=== PATIENT | male | born 1990 | race Caucasian/White ===

== ENCOUNTER 2019-07-25 08:33 | Emergency (ER) | payer MEDICAID ==
[~2019-07-25] VITALS: Ht 177.8 cm; Wt 73.0 kg
[2019-07-25 08:36] VITALS: BP 121/81
[2019-07-25] MEDS ORDERED: TETanus/Pertussis (Acell)/Diphther VAC/PF (Tdap-Adult) 0.5ml syringe IM ONE (09:15)
[2019-07-25] MEDS ORDERED: ibuprofen tablet 400 MG TABLET PO ONE (09:15)
[2019-07-25] MEDS ORDERED: LIDOcaine/epinephrine TOPICAL 5 ML BTL TOP ONE (09:15)
[2019-07-25] MEDS ORDERED: bacitracin 15gm ointment TP ONE (09:15)
[2019-07-25] MEDS ORDERED: acetaminophen 325mg tablet PO ONE (09:15)
[2019-07-25] MEDS ORDERED: LIDOcaine 2% 5ml jelly TOP ONE (09:35)
--- NOTE | 2019-07-25 10:36 | NUR ---
meds given by pao lópez
== END 2019-07-25 10:38 | disposition home or self-care (01) ==
LOC: ER 08:34
DX: S62.001A Unspecified fracture of navicular [scaphoid] bone of right wrist, initial encounter for closed fracture (principal); V00.131A Fall from skateboard, initial encounter; Y93.51 Activity, roller skating (inline) and skateboarding; Y92.89 Other specified places as the place of occurrence of the external cause; Y99.9 Unspecified external cause status
CPT/HCPCS: 29125; 73090; 73110; 99284

== ENCOUNTER 2020-05-11 02:34 | Emergency (ER) | payer MEDICAID, OTHER ==
[~2020-05-11] VITALS: Ht 177.8 cm; Wt 77.3 kg
[2020-05-11] MEDS ORDERED: ipratropium/albuterol 3ml nebule NEB ONE (02:45)
[2020-05-11] MEDS ORDERED: azithromycin 250mg tablet PO ONE (03:15)
[2020-05-11] MEDS ORDERED: predniSONE 20 mg tablet PO ONE (03:35)
[2020-05-11] MEDS ORDERED: PRED20TA PO (03:37)
[2020-05-11] MEDS ORDERED: AZIT-63 PO (03:37)
[2020-05-11] MEDS ORDERED: ALBU8.5H8 INH (03:38)
[2020-05-11 03:45] VITALS: BP 118/75
== END 2020-05-11 03:47 | disposition home or self-care (01) ==
LOC: ER 02:34
DX: J18.9 Pneumonia, unspecified organism (principal); J45.909 Unspecified asthma, uncomplicated; F17.200 Nicotine dependence, unspecified, uncomplicated; Z79.2 Long term (current) use of antibiotics; Z79.899 Other long term (current) drug therapy
CPT/HCPCS: 71045; 93005; 94640; 99283; J7512; 94760

== ENCOUNTER 2020-10-29 11:56 | Emergency (ER) | payer MEDICAID, OTHER ==
[~2020-10-29] VITALS: Ht 177.8 cm; Wt 60.4 kg
[~2020-10-29 11:56] MED LIST: ALBU8.5H8 INH
[2020-10-29] MEDS ORDERED: predniSONE 20 mg tablet PO ONE (12:20)
[2020-10-29 12:50] LABS: BASOPHILS # (AUTO) 0.1 X10'3 (0-0.2); BASOPHILS % (AUTO) 0.6 % (0-1); EOSINOPHILS # (AUTO) 0.7 X10'3 (0-0.9); HEMATOCRIT 47.1 % (42.0-52.0); HEMOGLOBIN 15.7 g/dl (14.0-17.9); LYMPHOCYTES # (AUTO) 1.9 X10'3 (1.1-4.8); LYMPHOCYTES % (AUTO) 15.1 % (21-51); MEAN CORPUSCULAR HEMOGLOBIN 30.1 PG (27.0-31.0); MEAN CORPUSCULAR HGB CONC 33.3 g/dL (33.0-36.5); MEAN CORPUSCULAR VOLUME 90.5 FL (78-98); MEAN PLATELET VOLUME 7.3 FL (7.4-10.4); MONOCYTES # (AUTO) 1.2 X10'3 (0-0.9); MONOCYTES % (AUTO) 9.9 % (2-12); NEUTROPHILS # (AUTO) 8.5 X10'3 (1.8-7.7); NEUTROPHILS % (AUTO) 68.4 % (42-75); PLATELET COUNT 426 X10'3 (140-440); RED CELL DISTRIBUTION WIDTH 13.6 % (11.5-14.5); WHITE BLOOD COUNT 12.4 X10'3 (4.5-11.0)
[2020-10-29 13:00] LABS: ALANINE AMINOTRANSFERASE 24 U/L (12-78); ALBUMIN 3.8 G/DL (3.4-5.0); ALKALINE PHOSPHATASE 119 IU/L (46-116); ANION GAP 10 (8-16); ASPARTATE AMINO TRANSFERASE 25 U/L (10-37); BILIRUBIN,TOTAL 0.6 MG/DL (0.1-1.0); BLOOD UREA NITROGEN 15 MG/DL (7-18); BUN/CREATININE RATIO 18.5 (5.4-32.0); CHLORIDE 102 MMOL/L (99-107); CREATININE 0.81 MG/DL (0.60-1.10); GLUCOSE 90 MG/DL (70-104); POTASSIUM 4.1 MMOL/L (3.5-5.1); SODIUM 140 MMOL/L (135-145); TOTAL CARBON DIOXIDE 28.2 MMOL/L (24-32); TOTAL PROTEIN 7.5 G/DL (6.4-8.2); eGFR > 90 ML/MIN
[2020-10-29] MEDS ORDERED: ALBU8HFA PO (13:08)
[2020-10-29] MEDS ORDERED: PRED20TA PO (13:08)
[2020-10-29 13:22] VITALS: BP 109/85
== END 2020-10-29 13:24 | disposition home or self-care (01) ==
LOC: ER 11:57
DX: R06.02 Shortness of breath (principal); Z20.828 Contact with and (suspected) exposure to other viral communicable diseases; R05 Cough; F17.200 Nicotine dependence, unspecified, uncomplicated; Z79.899 Other long term (current) drug therapy
CPT/HCPCS: 36415; 71045; 80053; 85025; 87635; 99284; J7512

== ENCOUNTER 2021-04-13 04:02 | Emergency (ER) | payer MEDICAID ==
[~2021-04-13] VITALS: Ht 172.7 cm; Wt 79.5 kg
[~2021-04-13 04:02] MED LIST changes: +ALBU8HFA PO
[2021-04-13] MEDS ORDERED: naloxone 2mg/2ml inj NAS STA ×2 (04:07→05:01)
[2021-04-13] MEDS ORDERED: ipratropium/albuterol 3ml nebule NEB ONE (04:15)
[2021-04-13 04:44] LABS: BASOPHILS # (AUTO) 0.1 X10'3 (0-0.2); BASOPHILS % (AUTO) 0.8 % (0-1); EOSINOPHILS # (AUTO) 0.6 X10'3 (0-0.9); EOSINOPHILS % (AUTO) 6.7 % (0-6); HEMATOCRIT 44.5 % (42.0-52.0); HEMOGLOBIN 15.1 g/dl (14.0-17.9); LYMPHOCYTES # (AUTO) 3.1 X10'3 (1.1-4.8); MEAN CORPUSCULAR HEMOGLOBIN 31.3 PG (27.0-31.0); MEAN CORPUSCULAR HGB CONC 33.9 g/dL (33.0-36.5); MEAN CORPUSCULAR VOLUME 92.4 FL (78-98); MEAN PLATELET VOLUME 7.7 FL (7.4-10.4); MONOCYTES # (AUTO) 0.7 X10'3 (0-0.9); MONOCYTES % (AUTO) 7.4 % (2-12); NEUTROPHILS # (AUTO) 4.7 X10'3 (1.8-7.7); NEUTROPHILS % (AUTO) 51.1 % (42-75); PLATELET COUNT 292 X10'3 (140-440); RED BLOOD COUNT 4.82 X10'6 (4.70-6.10); RED CELL DISTRIBUTION WIDTH 13.7 % (11.5-14.5); WHITE BLOOD COUNT 9.2 X10'3 (4.5-11.0)
[2021-04-13 04:47] LABS: ABG BASE EXCESS 0.9 mmol/L (-2.0-2.0); ABG HCO3 25.6 mmol/L (22.0-26.0); ABG OXYGEN SATURATION 91.6 % (94-97); ABG PCO2 (T) 45.7 mmHg (35.0-48.0); ABG PO2 (T) 70.9 mmHg (75.0-100.0); ALLEN'S TEST POSITIVE; FO2Hb 89.8 % (94-97); PATIENT TEMPERATURE 39.5; TOTAL HEMOGLOBIN 14.9 G/dl (14.0-18.0)
[2021-04-13 04:54] LABS: ALANINE AMINOTRANSFERASE 28 U/L (12-78); ALBUMIN 3.9 G/DL (3.4-5.0); ALBUMIN/GLOBULIN RATIO 1.1 (1.1-1.5); ALKALINE PHOSPHATASE 93 IU/L (46-116); ANION GAP 4 (8-16); ASPARTATE AMINO TRANSFERASE 17 U/L (10-37); BILIRUBIN,TOTAL 0.3 MG/DL (0.1-1.0); BLOOD UREA NITROGEN 12 MG/DL (7-18); BUN/CREATININE RATIO 14.8 (5.4-32.0); CALCIUM 8.9 MG/DL (8.5-10.1); CHLORIDE 104 MMOL/L (99-107); CREATININE 0.81 MG/DL (0.60-1.10); GLUCOSE 92 MG/DL (70-104); POTASSIUM 4.5 MMOL/L (3.5-5.1); SODIUM 141 MMOL/L (135-145); TOTAL CARBON DIOXIDE 32.6 MMOL/L (24-32); TOTAL PROTEIN 7.3 G/DL (6.4-8.2); eGFR > 90 ML/MIN
[2021-04-13 05:06] LABS: ETHANOL < 0.010 GM/DL (0.0-0.010); FERRITIN 135 NG/ML (26-388); LACTATE DEHYDROGENASE 163 U/L (85-227); MAGNESIUM 2.3 MG/DL (1.5-2.4)
[2021-04-13 05:07] LABS: CLARITY,URINE CLEAR (Clear); COLOR,URINE YELLOW (Yellow); GLUCOSE, URINE NEGATIVE (Neg); KETONES,URINE NEGATIVE (Neg); LEUKOCYTE ESTERASE ,URINE NEGATIVE (Neg); NITRITES, URINE NEGATIVE (Neg); OCCULT BLOOD,URINE NEGATIVE (Neg); PROTEIN,URINE NEGATIVE (Neg); UROBILINOGEN,URINE 0.2 E.U/dL (0.2-1.0)
[2021-04-13 05:08] LABS: UA COLLECTION TYPE CLN CATCH MIDSTREAM
[2021-04-13 05:09] LABS: C-REACTIVE PROTEIN < 0.05 MG/DL (0.0-0.5)
[2021-04-13 05:19] LABS: URINE AMPHETAMINE SCREEN POSITIVE (Neg); URINE BARBITUATE SCREEN NEGATIVE (Neg); URINE BENZODIAZEPINES SCREEN NEGATIVE (Neg); URINE CANNABINOID SCREEN NEGATIVE (Neg); URINE COCAINE SCREEN NEGATIVE (Neg); URINE METHADONE SCREEN NEGATIVE (Neg); URINE OPIATE SCREEN POSITIVE (Neg); URINE PHENCYCLIDINE SCREEN NEGATIVE (Neg)
[2021-04-13] MEDS ORDERED: naloxone 2mg/2ml inj 2 MG in normal saline 500ml IV soln 498 ML IV SCH (05:30)
[2021-04-13 09:34] VITALS: BP 98/73
--- NOTE | 2021-04-13 09:45 | NUR ---
Patient is now alert and oriented. Dr. Bowers updated. Narcan gtt dc'd and patient given something to eat. Will continue to monitor.
--- NOTE | 2021-04-13 10:17 | NUR ---
Patient requesting to go home. Dr. Bowers aware and at bedside to educate patient.
[2021-04-13] MEDS ORDERED: ACET160S PO (10:32)
[2021-04-13] MEDS ORDERED: IBUP100O20 PO (10:32)
--- NOTE | 2021-04-13 10:32 | NUR ---
Patient beginning to pull at IV and stating he wants to leave. Dr. Bowers at bedside. Security on standby. Patient adamant he wants to leave. It was explained that the patient needs to be monitored by a close contact at home or monitored in ER.
[2021-04-13] MEDS ORDERED: NALO4SPR BOTHNARES (11:10)
== END 2021-04-13 11:25 | disposition home or self-care (01) ==
LOC: ER 04:03
DX: F15.10 Other stimulant abuse, uncomplicated (principal); Z20.822 Contact with and (suspected) exposure to COVID-19; G93.40 Encephalopathy, unspecified; R09.02 Hypoxemia; R41.82 Altered mental status, unspecified; Z87.01 Personal history of pneumonia (recurrent); Z79.899 Other long term (current) drug therapy
CPT/HCPCS: 36415; 36600; 70450; 71045; 80053; 80305; 80320; 81003; 82728; 82803; 83615; 83735; 84145; 85018; 85025; 86140; 87635; 93005; 94640; 96365; 99285; C9803; J2310; J7040; 94760

== ENCOUNTER 2021-07-05 20:58 | Emergency (ER) | payer MEDICAID ==
[~2021-07-05] VITALS: Ht 172.7 cm; Wt 63.4 kg
[~2021-07-05 20:58] MED LIST changes: +ALBU8.5H17 INH; -ALBU8.5H8 INH; +NALO4SPR BOTHNARES
--- NOTE | 2021-07-05 20:58 | NUR ---
0.3 MG EPI IM
--- NOTE | 2021-07-05 21:00 | NUR ---
RESP MD LAB AND MULTIPLE RN AT BEDSIDES
[2021-07-05] MEDS ORDERED: methylPREDNISolone sod succ 125mg/2ml vial IV ONE (21:05)
[2021-07-05] MEDS ORDERED: albuterol 2.5 MG/3 ML nebule CONTNEB PRN ×2 (21:05→21:40)
[2021-07-05] MEDS ORDERED: epiNEPHrine 1 mg/ml inj IM STA (21:10)
[2021-07-05 21:12] LABS: ABG BASE EXCESS -16.1 mmol/L (-2.0-2.0); ABG HCO3 15.4 mmol/L (22.0-26.0); ABG OXYGEN SATURATION 97.4 % (94-97); ABG PCO2 (T) 58.2 mmHg (35.0-48.0); ABG PO2 (T) 129.3 mmHg (75.0-100.0); FCOHb 0.7 % (0.0-3.9); FMetHb 0.2 % (0.0-1.5); FO2Hb 96.5 % (94-97); PATIENT TEMPERATURE 36.1; TOTAL HEMOGLOBIN 15.5 G/dl (14.0-18.0)
--- NOTE | 2021-07-05 21:15 | NUR ---
X RAY AT BEDSIDE WELL RESP PULLING ABGS AND GIVEING ALBUTERAL TREATMENT
[2021-07-05 21:16] LABS: BASOPHILS # (AUTO) 0.1 X10'3 (0-0.2); BASOPHILS % (AUTO) 0.8 % (0-1); EOSINOPHILS # (AUTO) 1.4 X10'3 (0-0.9); EOSINOPHILS % (AUTO) 8.6 % (0-6); HEMATOCRIT 47.5 % (42.0-52.0); HEMOGLOBIN 15.1 g/dl (14.0-17.9); LYMPHOCYTES # (AUTO) 6.4 X10'3 (1.1-4.8); LYMPHOCYTES % (AUTO) 40.3 % (21-51); MEAN CORPUSCULAR HGB CONC 31.7 g/dL (33.0-36.5); MEAN CORPUSCULAR VOLUME 94.6 FL (78-98); MEAN PLATELET VOLUME 7.9 FL (7.4-10.4); MONOCYTES # (AUTO) 1.6 X10'3 (0-0.9); MONOCYTES % (AUTO) 10.1 % (2-12); NEUTROPHILS # (AUTO) 6.4 X10'3 (1.8-7.7); NEUTROPHILS % (AUTO) 40.2 % (42-75); PLATELET COUNT 324 X10'3 (140-440); RED BLOOD COUNT 5.02 X10'6 (4.70-6.10); RED CELL DISTRIBUTION WIDTH 14.4 % (11.5-14.5); WHITE BLOOD COUNT 15.8 X10'3 (4.5-11.0)
[2021-07-05] MEDS ORDERED: LORazepam 2 mg/ml vial ONE (21:20)
[2021-07-05] MEDS ORDERED: LORazepam 2 mg/ml vial IV ONE (21:20)
--- NOTE | 2021-07-05 21:21 | NUR ---
PT MEDICATED WITH 1 MG OF ATIVAN IV TO REALX TO TOLERATE BIPAP
--- NOTE | 2021-07-05 21:25 | NUR ---
RT ATEMPTED TO PLACE PT ON BI PAP . PT REFUSING AND PULLING FACE MASK OFF
[2021-07-05 21:29] LABS: PARTIAL THROMBOPLASTIN TIME 29 SECONDS (22-32)
[2021-07-05 21:31] LABS: ALANINE AMINOTRANSFERASE 27 U/L (12-78); ALBUMIN 3.9 G/DL (3.4-5.0); ALBUMIN/GLOBULIN RATIO 1.1 (1.1-1.5); ALKALINE PHOSPHATASE 117 IU/L (46-116); ANION GAP 19 (8-16); ASPARTATE AMINO TRANSFERASE 21 U/L (10-37); BILIRUBIN,TOTAL 0.4 MG/DL (0.1-1.0); BLOOD UREA NITROGEN 21 MG/DL (7-18); CALCIUM 8.9 MG/DL (8.5-10.1); CHLORIDE 103 MMOL/L (99-107); CREATININE 1.05 MG/DL (0.60-1.10); GLUCOSE 228 MG/DL (70-104); POTASSIUM 4.1 MMOL/L (3.5-5.1); SODIUM 145 MMOL/L (135-145); TOTAL CARBON DIOXIDE 22.7 MMOL/L (24-32); TOTAL PROTEIN 7.6 G/DL (6.4-8.2); eGFR 84 ML/MIN
[2021-07-05] MEDS ORDERED: normal saline 1000ML IV soln IV ONE (21:40)
[2021-07-05] MEDS ORDERED: CefTRIAXone 2gm/D5W 50ml BAG 50 ML IV ONE (21:40)
--- NOTE | 2021-07-05 21:46 | NUR ---
TELE REVERBERATORY SKIMMER CONSULT REQUESTED
[2021-07-05] MEDS ORDERED: PRED20TA PO (21:58)
[2021-07-05] MEDS ORDERED: NALO4SPR BOTHNARES (21:58)
[2021-07-05] MEDS ORDERED: ALB0.5UD IH (22:00)
[2021-07-05] MEDS ORDERED: ALBU8.5H17 INH (22:02)
[2021-07-05 22:07] LABS: ABG BASE EXCESS -2.5 mmol/L (-2.0-2.0); ABG HCO3 22.3 mmol/L (22.0-26.0); ABG OXYGEN SATURATION 92.6 % (94-97); ABG PCO2 (T) 37.3 mmHg (35.0-48.0); ABG PO2 (T) 61.9 mmHg (75.0-100.0); ALLEN'S TEST POSITIVE; FCOHb 0.7 % (0.0-3.9); FLOW 4 L/min; FMetHb 0.1 % (0.0-1.5); FO2Hb 91.9 % (94-97); PATIENT TEMPERATURE 36.1; TOTAL HEMOGLOBIN 15.2 G/dl (14.0-18.0)
[2021-07-05] MEDS ORDERED: morphine 2 MG/ML inj. syringe IV PRN (22:55)
[2021-07-05] MEDS ORDERED: magnesium hydroxide 30ml (MOM) UD suspension PO PRN (22:55)
[2021-07-05] MEDS ORDERED: morphine 4 MG/ML inj SYRINge IV PRN (22:55)
[2021-07-05] MEDS ORDERED: acetaminophen 325mg tablet PO PRN ×2 (22:55)
--- NOTE | 2021-07-05 23:55 | NUR ---
ICU TELY CONSULT
[2021-07-06 02:33] LABS: URINE AMPHETAMINE SCREEN POSITIVE (Neg); URINE BARBITUATE SCREEN NEGATIVE (Neg); URINE BENZODIAZEPINES SCREEN NEGATIVE (Neg); URINE CANNABINOID SCREEN POSITIVE (Neg); URINE COCAINE SCREEN NEGATIVE (Neg); URINE METHADONE SCREEN NEGATIVE (Neg); URINE OPIATE SCREEN POSITIVE (Neg); URINE PHENCYCLIDINE SCREEN NEGATIVE (Neg)
--- NOTE | 2021-07-06 12:48 | NUR ---
pt asking to go home. o2 removed, sats remain at 99%. will page hospitalist.
[2021-07-06] MEDS ORDERED: NO HOME MEDS (12:50)
--- NOTE | 2021-07-06 12:58 | NUR ---
call to Rebecca, master scheduler, informed him that the pt wants to go home, stated he couldn't discharge him but that he could leave AMA. informed pt.
[2021-07-06 17:38] VITALS: BP 106/75
--- NOTE | 2021-07-06 18:38 | NUR ---
PHONE CALL FROM SALVADOR ALMEIDA, CULTURES POS FOR GRAM POS. CLUSTERS, FROM IV START @ 20 HRS.
[2021-07-06] MEDS ORDERED: enoxaparin 40mg/0.4ml syringe SQ SCH (20:00)
== END 2021-07-06 21:24 | disposition left against medical advice (07) ==
LOC: ER 20:58 → UNDOADMIN 22:54 → ED HOLD 22:54 → UNDOADMIN 23:00 → UNDODISIN 07-06 21:24
DX: J96.02 Acute respiratory failure with hypercapnia (principal); Z20.822 Contact with and (suspected) exposure to COVID-19; J96.01 Acute respiratory failure with hypoxia; R41.82 Altered mental status, unspecified; J45.901 Unspecified asthma with (acute) exacerbation; Z79.899 Other long term (current) drug therapy; Z87.01 Personal history of pneumonia (recurrent)
CPT/HCPCS: 36415; 36600; 70450; 71045; 80053; 80305; 82803; 83605; 83880; 85018; 85025; 85610; 85730; 87040; 87077; 87186; 87635; 93005; 94644; 96365; 96372; 96375; 99285; C9803; J0171; J0696; J2060; J2930; J7030; 94760; A7015; G0378

== ENCOUNTER 2021-09-05 05:30 | Emergency (ER) | payer MEDICAID ==
[~2021-09-05] VITALS: Ht 175.3 cm; Wt 77.3 kg
[~2021-09-05 05:30] MED LIST changes: -ALBU8.5H17 INH; -ALBU8HFA PO; -NALO4SPR BOTHNARES; +NO HOME MEDS
[2021-09-05] MEDS ORDERED: dexamethasone 4mg tablet PO ONE ×2 (05:35→06:05)
[2021-09-05] MEDS ORDERED: ipratropium/albuterol 3ml nebule NEB ONE (05:35)
[2021-09-05] MEDS ORDERED: ALBU8HFA PO (07:02)
[2021-09-05 07:19] VITALS: BP 110/68
== END 2021-09-05 07:21 | disposition home or self-care (01) ==
LOC: ER 05:31
DX: J45.901 Unspecified asthma with (acute) exacerbation (principal); Z79.899 Other long term (current) drug therapy
CPT/HCPCS: 71045; 94640; 94760; 99283

== ENCOUNTER 2024-08-09 20:47 | Emergency (ER) | payer MEDICAID ==
[~2024-08-09] VITALS: Ht 177.8 cm; Wt 83.3 kg
[2024-08-09] MEDS ORDERED: SULF1TAB49 PO (21:36)
[2024-08-09] MEDS: LIDOcaine/epinephrine/tetracaine TOPICAL sol 3 ML syringe TOP ONE (21:38)
[2024-08-09] MEDS: LIDOcaine 1% W/epiNEPHrine 1:100,000 20ml vial SQ ONE (22:03)
[2024-08-09 22:11] VITALS: BP 117/81; PULSE 99; RESP 16; TEMP 98.6; O2SAT 99
== END 2024-08-09 22:12 | disposition home or self-care (01) ==
LOC: ER 20:49
DX: L02.02 Furuncle of face (principal)
CPT/HCPCS: 10060; 99283; A6407; J3490; A6449

== ENCOUNTER 2024-08-12 23:39 | Emergency (ER) | payer MEDICAID ==
[~2024-08-12] VITALS: Ht 177.8 cm; Wt 81.8 kg
[~2024-08-12 23:39] MED LIST changes: +SULF1TAB49 PO
[2024-08-13 01:28] VITALS: BP 132/84; PULSE 91; RESP 16; TEMP 98.2; O2SAT 98
== END 2024-08-13 01:30 | disposition home or self-care (01) ==
LOC: ER 23:40
DX: L02.02 Furuncle of face (principal); Z79.899 Other long term (current) drug therapy
CPT/HCPCS: 99281

== ENCOUNTER 2024-12-31 19:25 | Emergency (ER) | payer MEDICAID ==
[~2024-12-31] VITALS: Ht 177.8 cm; Wt 65.3 kg
[~2024-12-31 19:25] MED LIST changes: -SULF1TAB49 PO
[2024-12-31] MEDS ORDERED: CLOT30CR19 TOP (20:27)
[2024-12-31 20:29] VITALS: TEMP 96.4
[2024-12-31 20:31] VITALS: BP 138/81; PULSE 99; RESP 16; O2SAT 95
== END 2024-12-31 20:35 | disposition home or self-care (01) ==
LOC: ER 19:26
DX: B35.3 Tinea pedis (principal)
CPT/HCPCS: 99282

== ENCOUNTER 2025-03-11 22:50 | Inpatient (IN) | payer MEDICAID ==
[~2025-03-11] VITALS: Ht 177.8 cm; Wt 65.0 kg
[~2025-03-11 22:50] MED LIST changes: +CLOT30CR19 TOP
[2025-03-11] MEDS: magnesium sulf-water 2g/50mL 50 ML IV ONE (23:00)
[2025-03-11] MEDS: epiNEPHrine 1 mg/ml inj IM STA (23:01)
[2025-03-11] MEDS: ipratropium/albuterol 3ml nebule NEB STA (23:01)
[2025-03-11 23:03] VITALS: PULSE 97; RESP 24
[2025-03-11] MEDS: methylPREDNISolone sod succ 125mg/2ml vial IV STA (23:03)
[2025-03-11 23:08] VITALS: PULSE 124; O2SAT 98
[2025-03-11] MEDS: dexamethasone sod phosphate 10mg/ml inj IV STA (23:10)
[2025-03-12] VITALS (9 sets, daily range): BP systolic 86–121; BP diastolic 43–80; PULSE 78–107; RESP 12–20; TEMP 97.9; O2SAT 91–100
[2025-03-12] MEDS: albuterol 2.5 MG/3 ML nebule CONTNEB ONE (00:07)
[2025-03-12] MEDS ORDERED: potassium Cl 20 mEq SR tablet PO PRN ×2 (01:55)
[2025-03-12] MEDS ORDERED: magnesium sulf-water 4G/100mL 100 ML IV PRN (01:55)
[2025-03-12] MEDS ORDERED: ondansetron/PF 4mg/2ml inj IV PRN (01:55)
[2025-03-12] MEDS ORDERED: magnesium sulf-water 2g/50mL 50 ML IV PRN (01:55)
[2025-03-12] MEDS ORDERED: mag hydrox/Alum hydrox/simeth 30ml oral suspension PO PRN (01:55)
[2025-03-12] MEDS ORDERED: acetaminophen 325mg tablet PO PRN (01:55)
[2025-03-12] MEDS ORDERED: potassium Cl 40MEQ/1/2NS 520ml 520 ML IV PRN (01:55)
[2025-03-12] MEDS ORDERED: magnesium hydroxide 30ml (MOM) UD suspension PO PRN (01:55)
[2025-03-12] MEDS ORDERED: magnesium Cl slow-release 64mg tablet PO PRN (01:55)
[2025-03-12 02:39] LABS: BASOPHILS # (AUTO) 0.1 X10'3 (0-0.2); BASOPHILS % (AUTO) 0.8 % (0-1); EOSINOPHILS # (AUTO) 0.8 X10'3 (0-0.9); HEMATOCRIT 46.4 % (42.0-52.0); HEMOGLOBIN 15.5 g/dl (14.0-17.9); LYMPHOCYTES # (AUTO) 3.5 X10'3 (1.1-4.8); MEAN CORPUSCULAR HEMOGLOBIN 30.6 PG (27.0-31.0); MEAN CORPUSCULAR HGB CONC 33.4 g/dL (33.0-36.5); MEAN CORPUSCULAR VOLUME 91.5 FL (78-98); MEAN PLATELET VOLUME 8.9 FL (7.4-10.4); MONOCYTES # (AUTO) 0.8 X10'3 (0-0.9); MONOCYTES % (AUTO) 7.5 % (2-12); NEUTROPHILS # (AUTO) 5.8 X10'3 (1.8-7.7); NEUTROPHILS % (AUTO) 52.7 % (42-75); PLATELET COUNT 340 X10'3 (140-440); RED BLOOD COUNT 5.07 X10'6 (4.70-6.10); RED CELL DISTRIBUTION WIDTH 13.7 % (11.5-14.5)
[2025-03-12] MEDS ORDERED: albuterol 1.25 MG/3 ML (1/2 strength) nebule NEB PRN (02:45)
[2025-03-12 03:01] LABS: ALANINE AMINOTRANSFERASE 27 U/L (12-78); ALBUMIN 3.9 G/DL (3.4-5.0); ALBUMIN/GLOBULIN RATIO 1.1 (1.1-1.5); ALKALINE PHOSPHATASE 117 IU/L (46-116); ANION GAP 6 (8-16); ASPARTATE AMINO TRANSFERASE 19 U/L (10-37); BILIRUBIN,TOTAL 0.4 MG/DL (0.1-1.0); BLOOD UREA NITROGEN 10 MG/DL (7-18); BUN/CREATININE RATIO 12.7 (10.0-20.0); CALCIUM 8.5 MG/DL (8.5-10.1); CHLORIDE 105 MMOL/L (99-107); CREATININE 0.79 MG/DL (0.60-1.10); GLUCOSE 105 MG/DL (70-104); SODIUM 141 MMOL/L (135-145); TOTAL CARBON DIOXIDE 30.1 MMOL/L (24-32); TOTAL PROTEIN 7.4 G/DL (6.4-8.2); eGFR > 90 ML/MIN
[2025-03-12 03:12] LABS: POTASSIUM 3.7 MMOL/L (3.5-5.1)
[2025-03-12] MEDS: ipratropium/albuterol 3ml nebule NEB SCH (04:29)
[2025-03-12 06:20] LABS: MAGNESIUM 2.1 MG/DL (1.5-2.4); POTASSIUM 3.9 MMOL/L (3.5-5.1)
[2025-03-12] MEDS: docusate sod 100mg capsule PO SCH (08:00)
[2025-03-12] MEDS: methylPREDNISolone sod succ/PF 40mg inj. IV SCH (08:00)
[2025-03-12] MEDS: K and/or MAG REPLACEMENT MC SCH (08:00)
[2025-03-12] MEDS ORDERED: methylPREDNISolone sod succ/PF 40mg inj. IV SCH (08:00)
== END 2025-03-12 19:20 | disposition left against medical advice (07) | DRG 133 ==
LOC: ER 22:50 → ED HOLD 03-12 01:56 → ORTHO 4S 03-12 02:43
PROVIDERS: ADMIT Internal Medicine; ATTEND Nurse Practitioner Family
DX: J96.01 Acute respiratory failure with hypoxia (principal); J45.51 Severe persistent asthma with (acute) exacerbation; F17.210 Nicotine dependence, cigarettes, uncomplicated; Z53.21 Procedure and treatment not carried out due to patient leaving prior to being seen by health care provider; Z79.899 Other long term (current) drug therapy
CPT/HCPCS: 36415; 71045; 80053; 83735; 84132; 84145; 85025; 87081; 93005; 94640; 94760; 96361; 96372; 96374; 99291; G0378; J0171; J1100; J2919